=== PATIENT | male | born 1955 | race Caucasian/White ===

== ENCOUNTER 2022-06-17 08:17 | Day surgery (SDC) | payer MEDICARE ==
[2022-06-14 13:31] LABS: EOSINOPHILS % (AUTO) 3.5 % (0.0-8.0); HEMATOCRIT 43.5 % (42-54); MEAN CORPUSCULAR HEMOGLOBIN 29.9 pg (27.0-33.0); MEAN CORPUSCULAR HGB CONC 32.2 g/dL (32.0-36.0); MEAN CORPUSCULAR VOLUME 92.8 fL (79-99); MONOCYTES % (AUTO) 8.4 % (3.0-13.0); PLATELET COUNT (AUTO) 224 K/uL (130-400); RED BLOOD CELL COUNT(AUTO) 4.69 MIL/uL (4.50-6.20); RED CELL DISTRIBUTION WIDTH 16.4 % (11.0-15.5)
[2022-06-14 13:43] LABS: POTASSIUM 4.6 mmol/L (3.5-5.1)
[2022-06-14 13:44] LABS: INR 0.95 (0.85-1.15); PROTHROMBIN TIME 10.4 SEC (9.6-11.6)
[2022-06-14 13:45] LABS: PARTIAL THROMBOPLASTIN TIME 30.5 SEC (26.3-35.5)
[2022-06-16 10:13] VITALS: BP 141/71
[~2022-06-17] VITALS: Ht 167.6 cm; Wt 104.5 kg
[~2022-06-17 08:17] MED LIST: APIX5TAB PO; DRON400T7 PO; FLUT1BLS15 IH; POTA10CA44 PO; TORS20TA4 PO; VERA180T60 PO
[2022-06-17 08:33] VITALS: BP 143/83
[2022-06-17] MEDS ORDERED: FLUMAZENIL 0.1MG/1ML 5ML VIAL IV ONE (08:33)
[2022-06-17] MEDS ORDERED: LIDOCAINE HCL 2% VISCOUS 15 ML UDCUP ONE (08:33)
[2022-06-17] MEDS ORDERED: NALOXONE HCL 0.4 MG/1 ML ML ONE (08:34)
[2022-06-17] MEDS ORDERED: FENTANYL CITRATE PF 50 MCG/1 ML 2ML VIAL ONE (08:34)
[2022-06-17] MEDS ORDERED: MIDAZOLAM HCL 1 MG/ML 2ML VIAL ONE (08:35)
[2022-06-17] MEDS ORDERED: 0.9%NACL 1000ML 1,000 ML IV ONE (08:57)
== END 2022-06-17 10:20 | disposition home or self-care (01) ==
LOC: DAH 08:17
PROVIDERS: ATTEND Internal Medicine Cardiovascular Disease
DX: I48.0 Paroxysmal atrial fibrillation (principal); I48.3 Typical atrial flutter; J90 Pleural effusion, not elsewhere classified; I10 Essential (primary) hypertension; Z53.8 Procedure and treatment not carried out for other reasons; Z72.89 Other problems related to lifestyle; Z87.891 Personal history of nicotine dependence; Z86.711 Personal history of pulmonary embolism; Z80.0 Family history of malignant neoplasm of digestive organs; Z83.3 Family history of diabetes mellitus; Z79.899 Other long term (current) drug therapy; Z79.01 Long term (current) use of anticoagulants
CPT/HCPCS: 93005; 80048; 85025; 85610; 85730; 36415; J7030; A4215; A4222; A4221; A4663; A4216; A4606; A4223 ×3; J2250; J2310; J3010; J3490

== ENCOUNTER → 2023-10-06 | Outpatient (CLI) | payer MEDICARE ==
[~2023-10-06] MED LIST changes: -POTA10CA44 PO; +POTA10CA85 PO
== END | disposition home or self-care (01) ==
LOC: RAH 09:50
PROVIDERS: ATTEND Family Medicine
DX: M48.062 Spinal stenosis, lumbar region with neurogenic claudication (principal); M47.816 Spondylosis without myelopathy or radiculopathy, lumbar region; M51.36 Other intervertebral disc degeneration, lumbar region
CPT/HCPCS: 72148

== ENCOUNTER → 2024-05-29 | Outpatient (CLI) | payer MEDICARE ==
[~2024-05-29] MED LIST changes: -POTA10CA85 PO; +POTA10CA95 PO
== END | disposition home or self-care (01) ==
LOC: SHCH 08:32
PROVIDERS: ATTEND Internal Medicine Cardiovascular Disease
DX: I08.0 Rheumatic disorders of both mitral and aortic valves (principal); I11.9 Hypertensive heart disease without heart failure; I48.3 Typical atrial flutter; I48.91 Unspecified atrial fibrillation
CPT/HCPCS: 93306; 93356